=== PATIENT | female | born 1965 | race Caucasian/White ===

== ENCOUNTER 2019-11-15 13:24 | Emergency (ER) | payer BC ==
[2019-11-15 13:58] VITALS: BP 102/72; PULSE 89; TEMP 97.9
[2019-11-15] MEDS ORDERED: SYNTHROID0.112 MG/T PO (16:01)
[2019-11-15] MEDS ORDERED: ALDACTONE50 MG PO (16:01)
== END 2019-11-15 14:45 | disposition home or self-care (01) ==
LOC: COL.ER 13:24
DX: J06.9 Acute upper respiratory infection, unspecified (principal)

== ENCOUNTER → 2021-07-30 | Outpatient (CLI) | payer BC ==
[~2021-07-30] MED LIST: ALDACTONE50 MG PO; SYNTHROID0.112 MG/T PO
== END ==
LOC: MC.RAD 07:45
DX: Z12.31 Encounter for screening mammogram for malignant neoplasm of breast (principal); Z98.82 Breast implant status